=== PATIENT | female | born 1995 | race Caucasian/White ===

== ENCOUNTER 2016-07-07 15:06 | Emergency (ER) | payer BC ==
[2016-07-07] MEDS ORDERED: SODIUM CHLORIDE 0.9% 1,000 ML ONE (16:45)
== END 2016-07-07 18:17 | disposition home or self-care (01) ==
LOC: ER 15:06
CPT/HCPCS: 36415; 80053; 81003; 82306; 82947; 83690; 84439; 84443; 85025; 86403; 93005; 96360

== ENCOUNTER 2016-08-04 08:07 | Emergency (ER) | payer BC ==
[2016-08-04] MEDS ORDERED: SODIUM CHLORIDE 0.9% 1,000 ML ONE (08:44)
[2016-08-04] MEDS ORDERED: ONDANSETRON 4 MG VIAL ONE (08:44)
== END 2016-08-04 12:17 | disposition home or self-care (01) ==
LOC: ER 08:07
DX: I95.1 Orthostatic hypotension (principal); R11.2 Nausea with vomiting, unspecified
CPT/HCPCS: 36415; 70450; 74022; 80053; 80307; 81003; 82553; 83036; 83690; 84439; 84443; 84484; 84703; 85025; 93005; 96361; 96374